=== PATIENT | male | born 1965 | race Caucasian/White ===

== ENCOUNTER 2016-11-14 11:08 | Emergency (ER) | payer OTHER ==
[~2016-11-14] VITALS: Ht 177.8 cm; Wt 86.2 kg
[~2016-11-14 11:08] MED LIST: ACIPHEX 20MG20 MG PO; ASPIRIN CHILDRE81 MG PO; ATORVASTATIN CA40 MG PO; CO Q-1010 MG PO; ESCITALOPRAM10 MG PO; HUMALOG PEN100 U/ML; KEFLEX 250MG C250 MG PO; LANTUS100 U/ML SC; MULTIVITAMIN1 TAB PO; PROZAC20 M2 PO
[2016-11-14 11:11] VITALS: BP 137/73
--- NOTE | 2016-11-14 11:16 | ED EYE COMPLAINT ---
History of Present Illness General Chief Complaint: Eye Problems Stated Complaint: SOMETHNG IN LEFT EYE WORK RELATED Source: patient Exam Limitations: no limitations Vital Signs & Intake/Output Vital Signs & Intake/Output Vital Signs Date Time Temp Pulse Resp B/P Pulse O2 O2 Flow FiO2 Ox Delivery Rate 11/14 1111 97.6 84 20 137/73 97 Room Air Allergies Coded Allergies: NO KNOWN ALLERGIES (08/03/14) Reconcile Medications Aspirin (Children's Aspirin) 81 MG TAB.CHEW 1 TAB PO DAILY HEART HEALTH ( Reported) Atorvastatin Calcium (Lipitor) 40 MG TABLET 1 TAB PO AT BEDTIME CHOLESTEROL ( Reported) Escitalopram Oxalate 20 MG TABLET 1 TAB PO DAILY MENTAL HEALTH (Reported) Insulin Glargine, Recombinan (Lantus) 100 U/ML JENNIFER 50 U SC DAILY DIABETES ( Reported) Insulin Lispro, Recombinant (Humalog Pen) (Unknown Strength) FAUSTINA (Unknown Dose ) SEE SLIDING SCALE DIABETES (Reported) Multivitamin (Multiple Vitamins) 1 EACH TABLET 1 TAB PO Fri SUPPLEMENT (Reported) Rabeprazole Sodium (Aciphex 20MG) 20 MG TABLET.DR 1 TAB PO DAILY GI (Reported ) Triage Note: PT TO ED C/O LEFT EYE PAIN SINCE 0600 THIS AM. STATES IT FEELS LIKE THERE IS SOMETHING IN THERE. LEFT EYE RED. Triage Nurses Notes Reviewed? yes Onset: Gradual Duration: constant Timing: single episode today Severity: mild Severity Numbers: 3 HPI: Patient is a 51-year-old male who presents emergency room seen that while he got in his car today and turned off the car events defroster that he believes that he may have gotten something in his left eye which patient is had intermittent episodes of left eye irritation and clear watery drainage. Patient denies any pain. Denies any contact lens wear. Patient tried to irrigate his eye prior to arrival. Patient is a [employer] employee Patient denies any blurred vision or visual changes. (WINIFRED SHELL) Past History Travel History Traveled to [place] past 21 day No Medical History Any Pertinent Medical History? see below for history Cardiovascular: hyperlipidemia Endocrine: diabetes History of CDIFF: No Tetanus Vaccine: 11/25/15 Surgical History Surgical History: non-contributory Psychosocial History What is your primary language Pashto Tobacco Use: Never used ETOH Use: denies use Illicit Drug Use: denies illicit drug use Family History Hx Contributory? No (WINIFRED SHELL) Review of Systems Review of Systems Constitutional: Reports: no symptoms. Eyes: Reports: see HPI, foreign body sensation. Ear: Reports: no symptoms. Nose: Reports: no symptoms. Mouth: Reports: no symptoms. Throat: Reports: no symptoms. Respiratory: Reports: no symptoms. Cardiovascular: Reports: no symptoms. GI: Reports: no symptoms. Genitourinary: Reports: no symptoms. Musculoskeletal: Reports: no symptoms. Skin: Reports: no symptoms. Neurological/Psychological: Reports: no symptoms. Hematologic/Endocrine: Reports: no symptoms. Immunologic/Allergic: Reports: no symptoms. All Other Systems: Reviewed and Negative (WINIFRED SHELL) Physical Exam General Appearance: well developed/nourished, no apparent distress, alert General Inspection: normal inspection Eyelid: normal inspection Conjunctiva/Sclera: normal inspection Cornea: normal inspection, examined w/fluorescein EOM: intact Pupil: normal accommodation, normal pupil, PERRL Eye Left 1) Clear watery discharge no foreign body noted staining noted no uptake No erythema no exudates no injection Lids were everted shows no signs of inflammation or foreign body General Inspection: normal inspection Eyelid: normal inspection Conjunctiva/Sclera: normal inspection Cornea: normal inspection EOM: intact Pupil: normal accommodation, normal pupil, PERRL Anterior Chamber: normal inspection Physical Exam Head: atraumatic Ears: Bilateral: canal normal, Tympanic normal. Nose: normal inspection Neck: normal inspection, supple Cardiovascular/Respiratory: normal breath sounds, normal peripheral pulses Skin: intact, normal color (WINIFRED SHELL) Progress Differential Diagnosis: corneal abrasion, corneal foreign body, conjunctivitis, detached retina, glaucoma, globe rupture, retinal art./v. occlusion Plan of Care: Patient's was initially given tetracaine drops to the left eye and which under physical exam there is no concerns of corneal abrasion or foreign body is noted at this time. The left eye was irrigated extensively with eye irrigation solution which patient had significant resolution of his presenting complaints. I discussed with patient that foreign body could always be retained and to follow-up with layer out plate glass tomorrow if symptoms still continue. On discharge patient looks well no apparent distress and will comply with discharge instructions and had no questions (WINIFRED SHELL) Departure Departure Disposition: HOME OR SELF CARE Condition: Stable Clinical Impression Primary Impression: Foreign body of left eye Secondary Impressions: Irritation of left eye Referrals: FEDERICA SHAH,ANGELO [place] (PCP/Family) Additional Instructions: As discussed if symptoms worsen or you develop a new concerning symptom return to emergency room immediately. If no better by tomorrow follow up WITH YOUR establish layer out plate glass. Departure Forms: Customer Survey General Discharge Information (ZULEMA PINTO,WINIFRED) PA/REPRINT SORTER Co-Sign Statement Statement: ED Attending supervision documentation- [] I saw and evaluated the patient. I have also reviewed all the pertinent lab results and diagnostic results. I agree with the findings and the plan of care as documented in the PA's/REPRINT SORTER's documentation. [X] I have reviewed the ED Record and agree with the PA's/REPRINT SORTER's documentation. [] Additions or exceptions (if any) to the PAs/REPRINT SORTER's note and plan are summarized below: [] (MOSHE MEDRANO DO)
[2016-11-14] MEDS ORDERED: ESCITALOPRAM OX20 MG PO (11:24)
== END 2016-11-14 12:23 ==
LOC: ERH 11:08
DX: T15.92XA Foreign body on external eye, part unspecified, left eye, initial encounter (principal); H57.8 Other specified disorders of eye and adnexa